=== PATIENT | female | born 1955 | race Caucasian/White ===

== ENCOUNTER → 2016-12-13 | Outpatient (CLI) | payer OTHER ==
--- NOTE | 2016-12-13 17:47 | CONS ---
DATE OF CONSULTATION: 12/13/2016 This patient is a 61-year-old lady who has been evaluated in the sleep center for possible obstructive sleep apnea/hypopnea syndrome. HISTORY OF PRESENT ILLNESS/SLEEP-WAKE EVALUATION: Patient's usual sleep schedule is from 10:30 until 6:30 or 7 a.m. No problem with falling asleep. No TV in bedroom. According to her , she snores and she wakes up from sleep 3 times with nocturia. She wakes up with a dry mouth. In the morning she wakes up tired, feels sleepy during the day. [place] Sleepiness Scale is 10. She may take one nap during the day in the early afternoon. 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 PAST SURGICAL HISTORY: 1. Total hysterectomy. 2. Surgery for skin carcinoma of the forehead. 3. D&C MEDICATIONS: 1. Low-dose aspirin. 2. Vitamin E. 3. Polyvitamins. SOCIAL HISTORY: Negative for smoking. Alcohol consumption is occasional. REVIEW OF SYSTEMS: Tiredness and sleepiness during the day, snoring, multiple awakenings from sleep. No fevers. No double vision. No recent chest pain. No shortness of breath. No abdominal pain. No bleeding episodes. No blood in urine. No seizure episodes. FAMILY HISTORY: Hypertension, hyperlipidemia, snoring by her father, diabetes, thyroid problems. PHYSICAL EXAMINATION: GENERAL: A pleasant lady without distress. VITAL SIGNS: BP 132/71, HR 72, RR 16. Height 5 feet 5 inches. Weight 147. BMI 24.4. Neck 12-1/4 inches in circumference. Temperature 98.2. HEENT: PERRLA, EOMI. Evaluation of oropharynx showed tongue protrudes midline; retrognathia 2 to 3 mm. Extremely low position of soft palate. NECK: Supple. No JVD. Thyroid is not palpable. LUNGS: Clear to percussion and to auscultation. Good air exchange. No wheezing or rhonchi. HEART: S1, S2 regular. No murmurs, gallops or rubs. ABDOMEN: Soft and nontender. Bowel sounds are present. No organomegaly appreciated. EXTREMITIES: No clubbing or cyanosis. TIRE GROOVER: Awake, alert, and oriented x3. Cranial nerves 2 to 7 intact. There is no fasciculation or atrophy noted. No focal deficits observed. IMPRESSION: 1. Snoring, multiple awakenings from sleep, extremely low position of soft palate, sleepiness, retrognathia; obstructive sleep apnea/hypopnea syndrome. 2. History of uterine carcinoma, treated surgically. 3. History of skin carcinoma of the forehead, treated surgically. 4. Status post total hysterectomy. 5. Status post D&C. PLAN: 1. Polysomnography for evaluation of patient's breathing during sleep. 2. CPAP/BiPAP titration if sleep study confirms obstructive sleep apnea-hypopnea syndrome. 3. Preferable position during sleep on the side. 4. No driving if patient feels any sleepiness. Patient is aware of civil and criminal liability for unsafe driving. 5. I will see patient for follow-up visit to explain results of the testing and following plan. Thank you very much for referring this patient for consultation. Sincerely, Thad Tate MD, PhD, FAASM. Diplomat of [employer], Sleep Medicine Board by [employer] Pump Servicer Supervisor of [facility] [place]
== END | disposition home or self-care (01) ==
LOC: SLEEP 13:09
PROVIDERS: ATTEND Internal Medicine
DX: G47.33 Obstructive sleep apnea (adult) (pediatric) (principal); M26.19 Other specified anomalies of jaw-cranial base relationship; Z85.42 Personal history of malignant neoplasm of other parts of uterus; Z85.828 Personal history of other malignant neoplasm of skin; Z90.710 Acquired absence of both cervix and uterus; Z79.82 Long term (current) use of aspirin; Z79.899 Other long term (current) drug therapy
CPT/HCPCS: 99211

== ENCOUNTER → 2017-04-04 | Outpatient (CLI) | payer OTHER ==
--- NOTE | 2017-04-04 18:57 | PN ---
DATE OF SERVICE: 04/04/2017 61-year-old lady who has been followed in the sleep center for treatment of obstructive sleep apnea-hypopnea syndrome. Recently patient had a diagnostic sleep study and titration, and I discussed results of sleep test with her in detail. Patient brought her CPAP unit for check-up. I checked her CPAP machine. Patient demonstrated a 30 out of 30 nights usage of the machine for more than 4 hours. Average 7.7 hours. Leak is only 1 liter per minute. CPAP pressure of 6 cm of water. REM is an automatic regimen, apnea-hypopnea index is only 1.4. Patient improved her sleep with the usage of CPAP and she feels better during the day. [place] Sleepiness Scale today is 7. MEDICATIONS: 1. Aspirin. 2. Vitamin D. 3. Other vitamins. During physical exam, the patient in no distress. VITAL SIGNS: BP 121/70, HR 64, RR 16. Weight 149, temperature 98.0. Oxygen saturation at room air 95%, moderately low position of soft palate. Other physical examination normal. HEENT: PERRLA, EOMI, Evaluation of the oropharynx showed tongue protrudes midline. NECK: Supple. No JVD, Thyroid is not palpable. LUNGS: Clear to percussion and to auscultation. Good air exchange. No wheezing or rhonchi. HEART: S1, S2 regular. No murmurs, gallops, or rubs. ABDOMEN: Soft and nontender. Bowel sounds are present. No organomegaly appreciated. ROAD DRIVER: Awake, alert, and oriented x3. Cranial nerves 2 to 7 intact. There is no fasciculation or atrophy noted. No focal deficits observed. IMPRESSION: 1. Obstructive sleep apnea-hypopnea syndrome. Apnea-hypopnea index 9.8 with oxygen desaturation to 85% on control with CPAP at the pressure of 6 cm of water. Patient demonstrated 100% compliance with treatment benefiting from treatment. 2. History of skin carcinoma. 3. History of uterine carcinoma. 4. Status post D&C. PLAN: 1. Patient will continue to use her CPAP equipment every night. 2. Sleep hygiene with regular time in bed for at least 8 hours. 3. No driving if feeling any sleepiness. 4. Replacement of wall necessary CPAP supplies on a regular basis. 5. Follow-up visit in one year after sleep study was done in about 10 months. Thank you very much for allowing me to participate in the management of your patient. Sincerely, Thad Tate MD, PhD, FAASM Diplomat of [employer], Sleep Medicine Board by [employer] Coroner Transport Technician of [facility] [place]
== END | disposition home or self-care (01) ==
LOC: SLEEP 13:59
PROVIDERS: ATTEND Internal Medicine
DX: G47.33 Obstructive sleep apnea (adult) (pediatric) (principal); Z79.899 Other long term (current) drug therapy

== ENCOUNTER → 2017-08-19 | Outpatient (CLI) | payer OTHER ==
--- NOTE | 2017-08-20 09:23 | MM ---
Reason for exam: screening (asymptomatic). Last mammogram was performed 1 year ago. History: Patient is postmenopausal and has history of other cancer at age 55. Taking estrogen for 8 years. Physical Findings: A clinical breast exam by your physician is recommended on an annual basis and results should be correlated with mammographic findings. MG 3D Screening Mammo W/Cad Bilateral CC and MLO view(s) were taken. Prior study comparison: August 14, 2016, bilateral MG screening mammo w CAD. July 27, 2015, bilateral MG screening mammo w CAD. The breast tissue is heterogeneously dense. This may lower the sensitivity of mammography. Finding: There are typically benign round calcifications in the left breast. There is no discrete abnormality. ASSESSMENT: Benign, BI-RAD 2 RECOMMENDATION: Routine screening mammogram of both breasts in 1 year.
== END | disposition home or self-care (01) ==
LOC: RADMAMWWP 10:14
PROVIDERS: ATTEND Family Medicine
DX: Z12.31 Encounter for screening mammogram for malignant neoplasm of breast (principal)
CPT/HCPCS: 77063; G0202

== ENCOUNTER → 2018-01-27 | Outpatient (CLI) | payer OTHER | END | disposition home or self-care (01) | LOC: LABWHC1 10:42 | PROVIDERS: ATTEND Otolaryngology | DX: J30.89 Other allergic rhinitis (principal) | CPT/HCPCS: 36415 ==

== ENCOUNTER → 2018-02-17 | Outpatient (CLI) | payer OTHER | END | disposition home or self-care (01) | LOC: LABWHC1 14:09 | PROVIDERS: ATTEND Nurse Practitioner Family | DX: Z01.812 Encounter for preprocedural laboratory examination (principal); G47.33 Obstructive sleep apnea (adult) (pediatric) | CPT/HCPCS: 36415; 86140 ==

== ENCOUNTER → 2018-03-13 | Outpatient (CLI) | payer OTHER | END | disposition home or self-care (01) | LOC: LABPAT 13:55 | PROVIDERS: ATTEND Otolaryngology | DX: Z01.812 Encounter for preprocedural laboratory examination (principal); Z01.818 Encounter for other preprocedural examination; R53.83 Other fatigue | CPT/HCPCS: 93005 ==

== ENCOUNTER 2018-03-20 13:29 | Day surgery (SDC) | payer OTHER ==
[2018-03-17 14:27] VITALS: BMI 22.9
[~2018-03-20 13:29] MED LIST: DEXAMETHASONE SOD PHOSPHATE 10 MG/ML 1 ML VIAL IV ONE; LACTATED RINGERS 1,000 ML IV SCH; MELOXICAM 7.5 MG TAB PO ONE; MORPHINE SULFATE 4 MG/ML SYRINGE IV PRN; ONDANSETRON ODT 4 MG TAB PO ONE; Pre Op ABX Message 1 EACH MISC MISCELLANE ONE
[2018-03-20] MEDS ORDERED: LIDOCAINE 1% 20 ML VIAL (10MG/ML) FOR IV START INTRADERMA ONE (14:22)
[2018-03-20] MEDS: OXYMETAZOLINE 0.05% NASL SPRAY 1 SPRAY BOTTLE NASAL ONE ×5 (14:25→14:54)
[2018-03-20] MEDS ORDERED: ONDANSETRON 4 MG/2 ML VIAL IVP ONE ×2 (14:29→18:43)
[2018-03-20] MEDS ORDERED: DEXAMETHASONE SOD PHOS (MDV) 100 MG/10 ML VIAL ONE (15:12)
[2018-03-20] MEDS ORDERED: fentaNYL (PF) 50 MCG/ML 2 ML AMP ONE (15:12)
[2018-03-20] MEDS ORDERED: MIDAZOLAM 2 MG/2 ML VIAL ONE (15:12)
[2018-03-20] MEDS ORDERED: LIDOCAINE 1% INJ 10MG/ML (20 ML MDV) ONE (15:12)
[2018-03-20] MEDS ORDERED: ePHEDrine SULFATE/0.9% NACL/PF 50 MG/5 ML SYRINGE IV ONE (15:12)
[2018-03-20] MEDS ORDERED: PROPOFOL 10 MG/ML 20 ML VIAL IV ONE (15:12)
[2018-03-20] MEDS ORDERED: LIDOCAINE 1%-EPI 1:100,000 20 ML VIAL SUBMUCOSAL ONE ×4 (15:29→16:26)
[2018-03-20] MEDS ORDERED: BUPIVACAINE (PF) 0.25% 30 ML VIAL SQ ONE ×2 (16:25)
--- NOTE | 2018-03-20 16:54 | P.OP ---
Date of Procedure: 03/20/18 Preoperative Diagnosis: Obstructive sleep apnea syndrome Deviated nasal septum Postoperative Diagnosis: Same Procedure(s) Performed: Uvulopalatopharyngoplasty Septoplasty Anesthesia: IRENAA Surgeon: Brendan Leblanc Estimated Blood Loss (ml): 0 Pathology: other (septum/uvula) Condition: stable Disposition: PACU Indications for Procedure: This patient has sleep apnea and is on CPAP but is intolerant to CPAP. She was found have a deviated nasal septum along with a very redundant soft palate. The septum was deviated severely to the left with a septal spur noted very redundant soft palate was seen. Operative Findings: As above Description of Procedure: This patient was taken to the operative room and placed in the supine position. A general inhalation anesthetic was administered to the patient and subsequently intubated with a cuffed endotracheal tube by the department of anesthesia with a functioning IV line in place. The patient was monitored through the entire case by the department of anesthesia. Prep medication was administered Attention was paid to the nose where the septum and inferior turbinates were injected with lidocaine 1% with epinephrine 1 100,000. Approximately 10 minutes were allowed wait for full vasoconstrictive effects to take place. At this time, a caudal incision was made over the caudal portion of the left septum. This was made down to the mucoperichondrium were a mucoperichondrial flap was developed to the extent of visualization on the left. A crossover incision was made with for the mucoperichondrial flap development to the extent of visualization on the contralateral side. With use of several crosshatching incisions and removal of redundant strips of septal cartilage the septum was straightened and placed back in position. The septum was perfectly straight and the incision was closed with a 4 rapid Vicryl. A quilting stitch was used to reapproximate the septal flaps. The septum was sutured fixated to the vomer area and groove. In the incision was closed with 40 rapid Vicryl. Bauer splints were placed Attention was then paid to the mouth where a McIvor mouthgag was inserted into the patient's mouth with care to avoid any trauma to the lips, teeth, gums, or tongue. The mouth was opened and tongue was depressed and the soft palate was measured. The uvula was extremely long and the soft palate was redundant. We removed the anterior face of the uvula and we remove the anterior inferior margin of the mucosa the soft palate. We sutured the posterior margin of the soft palate to the anterior portion of the soft palate with care to avoid any excessive soft palate resection. We measured the soft palate to prevent any velopharyngeal insufficiency. The soft palate looked excellent and after the uvulectomy and the lateral pharyngeal mucosa was removed in the usual fashion, the incision was closed with a 4 rapid Vicryl. Excellent approximation was obtained. The patient was taken to postanesthesia recovery in excellent condition The patient will follow up with me in one week as an outpatient.
[2018-03-20 16:55] VITALS: TEMP 97.3
[2018-03-20] MEDS ORDERED: LABETALOL SYRINGE 5 MG/ML IV ONE ×3 (18:49→19:32)
[2018-03-20 18:58] VITALS: RESP 18
[2018-03-20] MEDS ORDERED: LIDOCAINE VISCOUS 2% 15 ML CUP MUCOUS MEM ONE (19:33)
[2018-03-20] MEDS ORDERED: ENALAPRILAT 1.25 MG/ML 1 ML VIAL IV ONE (19:33)
[2018-03-20 20:17] VITALS: BP 157/86; PULSE 80
[2018-03-21] MEDS ORDERED: DEXAMETHASONE SOD PHOSPHATE 4 MG/ML 1 ML VIAL IV ONE (05:00)
[2018-03-21] MEDS ORDERED: FAMOTIDINE 20 MG/2 ML VIAL IV ONE (05:00)
[2018-03-21] MEDS ORDERED: ceFAZolin 1,000 MG in DEXTROSE/WATER 1 50ML.BAG IV ONE (05:00)
[2018-03-21] MEDS ORDERED: ONDANSETRON 4 MG/2 ML VIAL IVP ONE (05:00)
== END 2018-03-20 20:31 | disposition home or self-care (01) ==
LOC: OR 13:29
PROVIDERS: ATTEND Otolaryngology
DX: J34.2 Deviated nasal septum (principal); G47.33 Obstructive sleep apnea (adult) (pediatric); H69.92 Unspecified Eustachian tube disorder, left ear; H93.13 Tinnitus, bilateral; H93.8X3 Other specified disorders of ear, bilateral; Z99.89 Dependence on other enabling machines and devices; Z79.2 Long term (current) use of antibiotics; Z79.82 Long term (current) use of aspirin; Z79.1 Long term (current) use of non-steroidal anti-inflammatories (NSAID); Z79.51 Long term (current) use of inhaled steroids; Z79.899 Other long term (current) drug therapy; Z91.012 Allergy to eggs; Z91.013 Allergy to seafood; Z91.018 Allergy to other foods; Z85.828 Personal history of other malignant neoplasm of skin; Z85.42 Personal history of malignant neoplasm of other parts of uterus
CPT/HCPCS: 42145; 30520; J2250; J2270; J2405; J2001; J3010; J0690; J1100; J2704; 88300; 88302

== ENCOUNTER → 2019-11-26 | Outpatient (CLI) | payer MEDICARE, OTHER ==
--- NOTE | 2019-11-26 11:52 | BD ---
EXAMINATION TYPE: Axial Bone Density DATE OF EXAM: 11/26/2019 COMPARISON: 07.29.2015 CLINICAL HISTORY: 64 YR OLD FEMALE....ICD-10 CODE: M89.9 DISORDER OF BONE Height: 65 Weight: 134 FRAX RISK QUESTIONS: Family History (Parent hip fracture): YES RISK FACTORS HISTORY OF: Family History of Osteoporosis: YES, HER MOTHER WITH HIP FXs Active: YES Diet low in dairy products/other sources of calcium: YES, A BIT Postmenopausal woman: YES AT AGE 47 Hyperparathyroidism: NO Adrenal Insufficiency: NO MEDICATIONS: Additional Medications: RADIATION FOR UTERINE CA, CHOLESTEROL MED, VIT D, Additional History: HX OF UTERINE CA, CHOLESTEROL EXAM MEASUREMENTS: Bone mineral densitometry was performed using the [employer] System. Bone mineral density as measured about the Lumbar spine is: ----- L1-L4(G/cm2): 1.262 T Score Values are as follows: ----- L1: -1.3 ----- L2: -0.5 ----- L3: 1.1 ----- L4: 2.8 ----- L1-L4: 0.7 Bone mineral density has: Increased 3.5% since study of: 07.29.2015 Bone mineral density about the R hip (g/cm2): 0.798 Bone mineral density about the L hip (g/cm2): 0.816 T Score values are as follows: -----R Neck: -1.8 -----L Neck: -1.8 -----R Total: -1.7 -----L Total: -1.5 Bone mineral density has: Decreased -1.1% since study of: 07.29.2015 FRAX%s: THERE IS A 17.4% CHANCE FOR A MAJOR OSTEOPOROTIC FX AND A 1.8% FOR HIP....PROBABILITY FOR F X IN 10 YRS TIME IMPRESSION: Osteopenia (T Score between -2.5 and -1). There is slightly increased risk of fracture and the patient may be considered for treatment. Re-Screen 2-5 years. NOTE: T-SCORE=SD OF THE YOUNG ADULT MEAN.
== END | disposition home or self-care (01) ==
LOC: RADBDWWP 09:36
PROVIDERS: ATTEND Family Medicine
DX: M85.88 Other specified disorders of bone density and structure, other site (principal)
CPT/HCPCS: 77080

== ENCOUNTER → 2019-11-26 | Outpatient (CLI) | payer MEDICARE, OTHER ==
--- NOTE | 2019-11-27 11:10 | MM ---
Reason for exam: screening (asymptomatic). Last mammogram was performed 1 year and 2 months ago. History: Patient is postmenopausal and has history of other cancer at age 55. Took estrogen for 8 years. Physical Findings: A clinical breast exam by your physician is recommended on an annual basis and results should be correlated with mammographic findings. MG 3D Screening Mammo W/Cad Bilateral CC and MLO view(s) were taken. Prior study comparison: October 07, 2018, bilateral MG 3d screening mammo w/cad. August 19, 2017, bilateral MG 3d screening mammo w/cad. The breast tissue is heterogeneously dense. This may lower the sensitivity of mammography. No suspicious abnormality. No significant changes when compared with prior studies. ASSESSMENT: Negative, BI-RAD 1 RECOMMENDATION: Routine screening mammogram of both breasts in 1 year.
== END ==
LOC: RADMAMWWP 09:39
PROVIDERS: ATTEND Obstetrics & Gynecology
DX: Z12.31 Encounter for screening mammogram for malignant neoplasm of breast (principal)
CPT/HCPCS: 77063; 77067

== ENCOUNTER → 2020-01-07 | Outpatient (CLI) | payer MEDICARE, OTHER | END | disposition home or self-care (01) | LOC: LABWHC1 11:42 | PROVIDERS: ATTEND Ophthalmology | DX: M19.90 Unspecified osteoarthritis, unspecified site (principal) | CPT/HCPCS: 36415; 85652; 86140 ==

== ENCOUNTER → 2020-08-17 | Outpatient (CLI) | payer MEDICARE, OTHER ==
--- NOTE | 2020-08-17 11:28 | US ---
EXAMINATION TYPE: US abdomen complete DATE OF EXAM: 08/17/2020 COMPARISON: NONE CLINICAL HISTORY: R10.9 ABD PAIN. abd pain and nausea ongoing for a year EXAM MEASUREMENTS: Liver Length: 12.3 cm Gallbladder Wall: 0.2 cm CBD: 0.4 cm Spleen: 9.7 cm Right Kidney: 9.2 x 3.9 x 3.9 cm Left Kidney: 8.5 x 3.0 x 4.5 cm Pancreas: wnl Liver: wnl Gallbladder: neck fold, wnl Evidence for sonographic Choudhury's sign: no CBD: wnl Spleen: wnl Right Kidney: wnl Left Kidney: wnl Upper IVC: wnl Abd Aorta: wnl The liver is homogenous. The intrahepatic portion of the IVC and proximal abdominal aorta are within normal limits. There is no evidence of cholelithiasis. Common bile duct is unremarkable. The visu alized portions of the pancreas are homogenous. The spleen is unremarkable. Kidneys are symmetric a nd free of hydronephrosis. No renal lesions are seen. IMPRESSION: No distinct abnormality is appreciated.
== END | disposition home or self-care (01) ==
LOC: RADUSWWP 10:43
PROVIDERS: ATTEND Family Medicine
DX: R10.9 Unspecified abdominal pain (principal)
CPT/HCPCS: 76700

== ENCOUNTER 2020-08-28 10:25 | Emergency (ER) | payer MEDICARE, OTHER ==
[2020-08-28 10:37] VITALS: RESP 18
[2020-08-28] MEDS ORDERED: ONDANSETRON 4 MG/2 ML VIAL IVP STA (10:52)
[2020-08-28] MEDS ORDERED: SODIUM CHLORIDE 0.9% 1,000 ML IV STA (10:52)
[2020-08-28] MEDS ORDERED: KETOROLAC 15 MG/ML 1 ML VIAL IVP STA (10:52)
--- NOTE | 2020-08-28 11:06 | ED ---
Abdominal Pain HPI - General Chief Complaint: Abdominal Pain Stated Complaint: Chest pain, Side pain Time Seen by Provider: 08/28/20 10:42 Source: patient, RN notes reviewed Mode of arrival: ambulatory Limitations: no limitations - History of Present Illness Initial Comments: This a 65-year-old female presents emergency Department chief complaint of right flank pain. Patient states she hasn't bothered symptoms earlier this year which resolved. But states that she's been having increasing abdominal pain and which she has not seen her primary care physician for an she had an ultrasound with no acute findings. She is scheduled now for appointment with Dr. Bryant but not until November. Patient states that she cannot tolerate the pain. It did worsen last night into today. She states that she developed some nausea, heartburn eyes any chest pain she states it's my her right kidney back. She has no shortness of breath no fevers or chills. Denies any dysuria hematuria no history kidney stones. Patient states she's been constipated though she still had a good bowel movements. Patient's had a prior hysterectomy, prior colonoscopies with no acute findings. - Related Data Home Medications Medication Instructions Recorded Confirmed Aspirin [Adult Low Dose Aspirin EC] 81 mg PO DAILY 08/21/16 08/28/20 Cholecalciferol [Vitamin D3] 1,000 unit PO DAILY 08/21/16 08/28/20 Multivit-Min/FA/Calcium/Vit K1 1 tab PO DAILY 08/21/16 08/28/20 [One-A-Day Women's 50+ Tablet] Atorvastatin Calcium [Lipitor] 5 mg PO DAILY 08/28/20 08/28/20 Curamin Pain Relief 1 tab PO TID PRN 08/28/20 08/28/20 Previous Rx's Medication Instructions Recorded Docusate [Colace] 100 mg PO BID #14 capsule 08/28/20 Naproxen 500 mg PO BID #20 tablet 08/28/20 Allergies Allergy/AdvReac Type Severity Reaction Status Date / Time egg yolk Allergy Unknown Verified 08/28/20 11:36 gluten Allergy Unknown Verified 08/28/20 11:36 shellfish derived [Shrimp] Allergy Unknown Verified 08/28/20 11:36 wheat Allergy Unknown Verified 08/28/20 11:36 Review of Systems ROS Statement: Those systems with pertinent positive or pertinent negative responses have been documented in the HPI. ROS Other: All systems not noted in ROS Statement are negative. 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 History of Any Multi-Drug Resistant Organisms: None Reported Past Surgical History: Hysterectomy Additional Past Surgical History / Comment(s): FOSTER NEUROMA RIGHT FOOT,D&C Past Anesthesia/Blood Transfusion Reactions: Motion Sickness Past Psychological History: No Psychological Hx Reported Smoking Status: Never smoker Past Alcohol Use History: Occasional Past Drug Use History: None Reported - Past Family History Mother Family Medical History: No Reported History General Exam Limitations: no limitations General appearance: alert, in no apparent distress Head exam: Present: atraumatic, normocephalic, normal inspection Eye exam: Present: normal appearance, PERRL, EOMI. Absent: scleral icterus, conjunctival injection, periorbital swelling ENT exam: Present: normal exam, normal oropharynx, mucous membranes moist Neck exam: Present: normal inspection, full ROM. Absent: tenderness, meningismus, lymphadenopathy Respiratory exam: Present: normal lung sounds bilaterally. Absent: respiratory distress, wheezes, rales, rhonchi, stridor Cardiovascular Exam: Present: regular rate, normal rhythm, normal heart sounds. Absent: systolic murmur, diastolic murmur, rubs, gallop, clicks GI/Abdominal exam: Present: soft, tenderness (Mild right upper quadrant), normal bowel sounds. Absent: distended, guarding, rebound, rigid Back exam: Present: CVA tenderness (R). Absent: CVA tenderness (L) Neurological exam: Present: alert, oriented X3, CN II-XII intact Skin exam: Present: warm, dry, intact, normal color. Absent: rash Course Vital Signs 08/28/20 08/28/20 10:33 12:45 Temperature 98.3 F Pulse Rate 78 69 Respiratory 18 18 Rate Blood Pressure 145/78 161/79 O2 Sat by Pulse 100 99 Oximetry Medical Decision Making - Medical Decision Making 65-year-old presented for right flank pain. This has been ongoing. Patient did have further imaging after she had prior ultrasound which didn't reveal any acute abnormality CT does not show any major abnormality's account for pain. Patient's labs unremarkable. Patient will be discharged in stable condition advised follow-up with her PCP tomorrow return for any worsening or changing symptoms. - Lab Data Result diagrams: 08/28/20 11:02 08/28/20 11:02 Lab Results 08/28/20 08/28/20 08/28/20 Range/Units 11:02 11:02 11:02 WBC 3.9 (3.8-10.6) k/uL RBC 4.98 (3.80-5.40) m/uL Hgb 14.5 (11.4-16.0) gm/dL Hct 44.4 (34.0-46.0) % MCV 89.1 (80.0-100.0) fL MCH 29.2 (25.0-35.0) pg MCHC 32.7 (31.0-37.0) g/dL RDW 12.2 (11.5-15.5) % Plt Count 273 (150-450) k/uL Neutrophils % 56 % Lymphocytes % 25 % Monocytes % 8 % Eosinophils % 7 % Basophils % 1 % Neutrophils # 2.2 (1.3-7.7) k/uL Lymphocytes # 1.0 (1.0-4.8) k/uL Monocytes # 0.3 (0-1.0) k/uL Eosinophils # 0.3 (0-0.7) k/uL Basophils # 0.0 (0-0.2) k/uL Sodium 138 (137-145) mmol/L Potassium 4.5 (3.5-5.1) mmol/L Chloride 106 (98-107) mmol/L Carbon Dioxide 25 (22-30) mmol/L Anion Gap 7 mmol/L BUN 21 H (7-17) mg/dL Creatinine 0.80 (0.52-1.04) mg/dL Est GFR (CKD-EPI)AfAm 88 (>60 ml/min/1.73 sqM) Est GFR (CKD-EPI)NonAf 77 (>60 ml/min/1.73 sqM) Glucose 102 H (74-99) mg/dL Plasma Lactic Acid Petey (0.7-2.0) mmol/L Calcium 10.0 (8.4-10.2) mg/dL Total Bilirubin 0.6 (0.2-1.3) mg/dL AST 37 H (14-36) U/L ALT 32 (4-34) U/L Alkaline Phosphatase 80 (38-126) U/L Troponin I (0.000-0.034) ng/mL Total Protein 7.2 (6.3-8.2) g/dL Albumin 4.7 (3.5-5.0) g/dL Amylase 62 (30-110) U/L Lipase 53 (23-300) U/L Urine Color Yellow Urine Appearance Clear (Clear) Urine pH 7.0 (5.0-8.0) Ur Specific [place] 1.018 (1.001-1.035) Urine Protein Negative (Negative) Urine Glucose (UA) Negative (Negative) Urine Ketones Trace H (Negative) Urine Blood Negative (Negative) Urine Nitrite Negative (Negative) Urine Bilirubin Negative (Negative) Urine Urobilinogen <2.0 (<2.0) mg/dL Ur Leukocyte Esterase Small H (Negative) Urine RBC 1 (0-5) /hpf Urine WBC 1 (0-5) /hpf Ur Squamous Epith Cells <1 (0-4) /hpf Urine Mucus Rare H (None) /hpf 08/28/20 08/28/20 Range/Units 11:02 11:02 WBC (3.8-10.6) k/uL RBC (3.80-5.40) m/uL Hgb (11.4-16.0) gm/dL Hct (34.0-46.0) % MCV (80.0-100.0) fL MCH (25.0-35.0) pg MCHC (31.0-37.0) g/dL RDW (11.5-15.5) % Plt Count (150-450) k/uL Neutrophils % % Lymphocytes % % Monocytes % % Eosinophils % % Basophils % % Neutrophils # (1.3-7.7) k/uL Lymphocytes # (1.0-4.8) k/uL Monocytes # (0-1.0) k/uL Eosinophils # (0-0.7) k/uL Basophils # (0-0.2) k/uL Sodium (137-145) mmol/L Potassium (3.5-5.1) mmol/L Chloride (98-107) mmol/L Carbon Dioxide (22-30) mmol/L Anion Gap mmol/L BUN (7-17) mg/dL Creatinine (0.52-1.04) mg/dL Est GFR (CKD-EPI)AfAm (>60 ml/min/1.73 sqM) Est GFR (CKD-EPI)NonAf (>60 ml/min/1.73 sqM) Glucose (74-99) mg/dL Plasma Lactic Acid Petey 0.9 (0.7-2.0) mmol/L Calcium (8.4-10.2) mg/dL Total Bilirubin (0.2-1.3) mg/dL AST (14-36) U/L ALT (4-34) U/L Alkaline Phosphatase (38-126) U/L Troponin I <0.012 (0.000-0.034) ng/mL Total Protein (6.3-8.2) g/dL Albumin (3.5-5.0) g/dL Amylase (30-110) U/L Lipase (23-300) U/L Urine Color Urine Appearance (Clear) Urine pH (5.0-8.0) Ur Specific [place] (1.001-1.035) Urine Protein (Negative) Urine Glucose (UA) (Negative) Urine Ketones (Negative) Urine Blood (Negative) Urine Nitrite (Negative) Urine Bilirubin (Negative) Urine Urobilinogen (<2.0) mg/dL Ur Leukocyte Esterase (Negative) Urine RBC (0-5) /hpf Urine WBC (0-5) /hpf Ur Squamous Epith Cells (0-4) /hpf Urine Mucus (None) /hpf Disposition Clinical Impression: Flank pain Disposition: HOME SELF-CARE Condition: Stable Instructions (If sedation given, give patient instructions): Abdominal Pain (ED) Additional Instructions: Please return to the Emergency Department if symptoms worsen or any other concerns. Prescriptions: Docusate [Colace] 100 mg PO BID #14 capsule Naproxen 500 mg PO BID #20 tablet Is patient prescribed a controlled substance at d/c from ED?: No Referrals: Karina Peña MD [Primary Care Provider] - 1-2 days Simon Pizarro MD [STAFF PHYSICIAN] - 1-2 days Time of Disposition: 13:20
[2020-08-28 11:15] LABS: Basophils % (A) 1 %; Eosinophils # (A) 0.3 k/uL (0-0.7); Eosinophils % (A) 7 %; HCT 44.4 % (34.0-46.0); HGB 14.5 gm/dL (11.4-16.0); Lymphocytes % (A) 25 %; MCH 29.2 pg (25.0-35.0); MCHC 32.7 g/dL (31.0-37.0); MCV 89.1 fL (80.0-100.0); Mean Platelet Volume 6.8; Monocytes # (A) 0.3 k/uL (0-1.0); Monocytes % (A) 8 %; Neutrophils # (A) 2.2 k/uL (1.3-7.7); Neutrophils % (A) 56 %; Platelet Count 273 k/uL (150-450); RBC 4.98 m/uL (3.80-5.40); RDW 12.2 % (11.5-15.5); WBC 3.9 k/uL (3.8-10.6)
[2020-08-28 11:28] LABS: Albumin 4.7 g/dL (3.5-5.0); Potassium 4.5 mmol/L (3.5-5.1); Total Bilirubin 0.6 mg/dL (0.2-1.3); Total Protein 7.2 g/dL (6.3-8.2)
[2020-08-28 11:38] LABS: Appearance,Urine Clear (Clear); Bilirubin,Urine Negative (Negative); Blood,Urine Negative (Negative); Color,Urine Yellow; Glucose,Urine (UA) Negative (Negative); Ketones,Urine Trace (Negative); Leukocyte Esterase,Urine Small (Negative); Mucus,Urine Rare /hpf; Nitrite,Urine Negative (Negative); Protein,Urine Negative (Negative); RBC,Urine 1 /hpf (0-5); Specific Gravity,Urine 1.018 (1.001-1.035); Squamous Epithelial Cell,Urine <1 /hpf (0-4); Urobilinogen,Urine <2.0 mg/dL (<2.0); WBC,Urine 1 /hpf (0-5)
--- NOTE | 2020-08-28 13:02 | CT ---
EXAMINATION TYPE: CT abdomen pelvis w con DATE OF EXAM: 08/28/2020 COMPARISON: NONE HISTORY: 65-year-old female Abdominal pain TECHNIQUE: Contiguous axial scanning of the abdomen and pelvis following administration of 100 ml Omn ipaque 300 IV contrast. Delayed images through the kidneys and coronal/sagittal reconstructions perf ormed. CT DLP: 663.6 mGycm Automated exposure control for dose reduction was used. FINDINGS: Heart normal size without pericardial effusion. Lung bases clear without pleural effusion. Tiny hiatal hernia. Focal fat along the anterior falciform ligament. Otherwise, no focal liver lesion or biliary ductal d ilatation. Portal venous system is patent. Gallbladder, adrenal glands, left kidney, spleen with anterior splenule, and pancreas appear within n ormal limits. Tiny subcentimeter hypodensity within the right kidney too small for accurate CT charac terization, likely tiny cyst. No dilated small bowel, free fluid, or free air. No mesenteric or retroperitoneal lymphadenopathy. Normal appendix. Scattered [id number] stool. Mild diverticular change along the distal sigmoid. No pericolonic inflammatory change. Bladder is urine distended. Uterus surgically absent. Neither ovary visualized. No abnormal fluid col lection in the pelvis or pelvic lymphadenopathy. Bones: Facet arthropathy lower lumbar spine. Moderate to advanced degenerative disc disease L5-S1. IMPRESSION: NO ACUTE INFLAMMATORY PROCESS IDENTIFIED IN THE ABDOMEN OR PELVIS TO EXPLAIN THE PATIENT'S SYMPTOMS. MILD DISTAL SIGMOID DIVERTICULOSIS. TINY HIATAL HERNIA.
[2020-08-28 13:46] VITALS: BP 150/72; PULSE 64; TEMP 98.1
== END 2020-08-28 13:45 | disposition home or self-care (01) ==
LOC: EC 10:25
DX: R10.9 Unspecified abdominal pain (principal); Z79.82 Long term (current) use of aspirin; Z79.899 Other long term (current) drug therapy; Z91.012 Allergy to eggs; Z91.018 Allergy to other foods; Z91.013 Allergy to seafood; Z90.710 Acquired absence of both cervix and uterus
CPT/HCPCS: 36415; 80053; 82150; 83605; 83690; 84484; 85025; 81001; 74177; 99284; 96374; 96375; 96361 ×3; J2405; J1885; Q9967; 93005

== ENCOUNTER → 2020-10-10 | Outpatient (CLI) | payer MEDICARE, OTHER ==
--- NOTE | 2020-10-10 10:02 | NM ---
EXAMINATION TYPE: NM hepatobiliary w CCK DATE OF EXAM: 10/10/2020 COMPARISON: CT 08/28/2020 HISTORY: 65-year-old female R10.84, abdominal pain TECHNIQUE: After the intravenous administration of 5 mCi Tc 99m Mebrofenin hepatobiliary scintigraphy is performed. Immediate images post injection. FINDINGS: There is satisfactory initial accumulation of tracer by the liver. The gallbladder is visualized wit hin 26 minutes. The small bowel activity is noted within 8 minutes. At one hour CCK was administere d, patient was injected with 1.2 mcg of Kinevac, and gallbladder ejection fraction is calculated at 9 3 %, elevated above the expected range. IMPRESSION: 1. No scintigraphic evidence for acute/chronic cholecystitis or biliary dyskinesia. 2. Gallbladder ejection fraction is elevated at 93%. Findings may be seen in the setting of gallbladd er hyperkinesis.
== END | disposition home or self-care (01) ==
LOC: RADNMMAIN 07:04
PROVIDERS: ATTEND Surgery
DX: R93.2 Abnormal findings on diagnostic imaging of liver and biliary tract (principal)
CPT/HCPCS: 78227; A9537; J2805

== ENCOUNTER → 2021-04-06 | Outpatient (CLI) | payer MEDICARE, OTHER ==
--- NOTE | 2021-04-07 09:02 | MM ---
Reason for exam: screening (asymptomatic). Last mammogram was performed 1 year and 4 months ago. History: Patient is postmenopausal and has history of other cancer at age 55. Took estrogen for 8 years. Physical Findings: A clinical breast exam by your physician is recommended on an annual basis and results should be correlated with mammographic findings. MG 3D Screening Mammo W/Cad Bilateral CC and MLO view(s) were taken. Prior study comparison: November 26, 2019, bilateral MG 3d screening mammo w/cad. October 07, 2018, bilateral MG 3d screening mammo w/cad. The breast tissue is heterogeneously dense. This may lower the sensitivity of mammography. There is no discrete abnormality. No significant changes when compared with prior studies. ASSESSMENT: Negative, BI-RAD 1 RECOMMENDATION: Routine screening mammogram of both breasts in 1 year.
== END | disposition home or self-care (01) ==
LOC: RADMAMWWP 13:34
PROVIDERS: ATTEND Obstetrics & Gynecology
DX: Z12.31 Encounter for screening mammogram for malignant neoplasm of breast (principal); Z78.0 Asymptomatic menopausal state
CPT/HCPCS: 77063; 77067

== ENCOUNTER → 2022-04-11 | Outpatient (CLI) | payer MEDICARE, OTHER ==
--- NOTE | 2022-04-11 15:56 | BD ---
EXAMINATION TYPE: Axial Bone Density DATE OF EXAM: 04/11/2022 COMPARISON: 11/26/2019 CLINICAL HISTORY: 66 years year old Female. ICD-10 CODE: Z78.0 Post Menopausal Height: 64.7 IN Weight: 145 LBS RISK FACTORS HISTORY OF: Family History of Osteoporosis: YES MOTHER Active: YES Postmenopausal woman: AGE 47; TOTAL HYST AGE 59 MEDICATIONS: Additional Medications: VIT D, VITAMIN, LOW DOSE ASPIRIN, ATORVASTATIN, Additional History: ENDOMETRIAL CANCER WITH RADIATION EXAM MEASUREMENTS: Bone mineral densitometry was performed using the [employer] System. Bone mineral density as measured about the Lumbar spine is: ----- L1-L4(G/cm2): 1.177 T Score Values are as follows: ----- L1: -1.4 ----- L2: -1.2 ----- L3: 0.6 ----- L4: 1.6 ----- L1-L4: 0.0 Bone mineral density has: Decreased -8.2% since study of: 11/26/2019 Bone mineral density about the R hip (g/cm2): 0.719 Bone mineral density about the L hip (g/cm2): 0.702 T Score values are as follows: -----R Neck: -2.3 -----L Neck: -2.4 -----R Total: -1.5 -----L Total: -1.9 Bone mineral density has: Decreased -2.2% since study of: 11/26/2019 FRAX%s: The graph provided illustrates a 14.0 chance for a major osteoporotic fx and a 3.3 chance for the hips probability for fx in 10 years time. IMPRESSION: Osteopenia (T Score between -2.5 and -1). There is slightly increased risk of fracture and the patient may be considered for treatment. Re-Screen 2-5 years. NOTE: T-SCORE=SD OF THE YOUNG ADULT MEAN.
--- NOTE | 2022-04-12 19:07 | MM ---
Reason for Exam: Screening (asymptomatic). Last mammogram was performed 1 year(s) and 1 month(s) ago. Patient History: Menarche at age 11. First Full-Term at age 28. Late child-bearing (after 28). Left ovary removed at age 60. Right ovary removed at age 60. Hysterectomy at age 60. Postmenopausal. Other cancer, age 55. Patient used Estrogen for 8 years. Risk Values: Kelsi 5 year model risk: 2.4%. NCI Lifetime model risk: 7.6%. Prior Study Comparison: 10/07/2018 Bilateral Screening Mammogram, [facility]. 11/26/2019 Bilateral Screening Mammogram, [facility]. 04/06/2021 Bilateral Screening Mammogram, [facility]. Tissue Density: The breast tissue is heterogeneously dense. This may lower the sensitivity of mammography. Findings: Analyzed By CAD. No significant change from prior exams. Overall Assessment: Negative, BI-RAD 1 Management: Screening Mammogram of both breasts in 1 year. Annual clinical breast exam by your physician. Also, monthly self breast exams are recommended. A negative mammogram should not preclude additional follow-up of suspicious palpable abnormalities. Electronically signed and approved by: Charu Garrison M.D. Radiologist
== END | disposition home or self-care (01) ==
LOC: RADBDWWP 14:13
PROVIDERS: ATTEND Obstetrics & Gynecology
DX: Z12.31 Encounter for screening mammogram for malignant neoplasm of breast (principal); Z78.0 Asymptomatic menopausal state; M85.89 Other specified disorders of bone density and structure, multiple sites; Z90.721 Acquired absence of ovaries, unilateral
CPT/HCPCS: 77063; 77067; 77080

== ENCOUNTER → 2023-04-17 | Outpatient (CLI) | payer MEDICARE, OTHER ==
--- NOTE | 2023-04-17 14:17 | MM ---
Reason for Exam: Screening (asymptomatic). Last screening mammogram was performed 12 month(s) ago. Patient History: Menarche at age 11. First Full-Term at age 28. Late child-bearing (after 28). Left ovary removed at age 60. Right ovary removed at age 60. Hysterectomy at age 60. Postmenopausal. Other cancer, age 55. Patient used Estrogen for 8 years. Risk Values: Kelsi 5 year model risk: 2.4%. NCI Lifetime model risk: 7.3%. Prior Study Comparison: 11/26/2019 Bilateral Screening Mammogram, [facility]. 04/06/2021 Bilateral Screening Mammogram, [facility]. 04/11/2022 Bilateral MG 3D screening mammo w/cad, [facility]. Tissue Density: The breast tissue is heterogeneously dense. This may lower the sensitivity of mammography. Findings: Analyzed By CAD. There is no suspicious group of microcalcifications or new suspicious mass in either breast. Overall Assessment: Negative, BI-RAD 1 Management: Screening Mammogram of both breasts in 1 year. A clinical breast exam by your physician is recommended on an annual basis and results should be correlated with mammographic findings. Electronically signed and approved by: Reinaldo Perez D.O.
== END | disposition home or self-care (01) ==
LOC: RADMAMWWP 09:52
PROVIDERS: ATTEND Family Medicine
DX: Z12.31 Encounter for screening mammogram for malignant neoplasm of breast (principal); Z78.0 Asymptomatic menopausal state
CPT/HCPCS: 77063; 77067

== ENCOUNTER → 2024-04-20 | Outpatient (CLI) | payer MEDICARE, OTHER ==
--- NOTE | 2024-04-20 11:15 | BD ---
EXAMINATION TYPE: Axial Bone Density DATE OF EXAM: 04/20/2024 CLINICAL HISTORY: 68 years old Female. ICD-10 CODE: M84.80 OTHER DISORDERS OF CONTIN Height: 64.5in Weight: 146lb FRAX RISK QUESTIONS: Secondary Osteoporosis: RISK FACTORS HISTORY OF: MEDICATIONS: EXAM MEASUREMENTS: Bone mineral densitometry was performed using the [employer] System. Bone mineral density as measured about the Lumbar spine is: ----- L1-L4(G/cm2): 1.260 T Score Values are as follows: ----- L1: -1.2 ----- L2: -0.5 ----- L3: 1.3 ----- L4: 2.5 ----- L1-L4: 0.7 Z Score Values are as follows: ----- L1: 0.5 ----- L2: 1.2 ----- L3: 3.0 ----- L4: 4.1 ----- L1-L4: 2.3 Bone mineral density has: Increased 7.1% since study of: 04-11-22 Bone mineral density about the R hip (g/cm2): 0.839 Bone mineral density about the L hip (g/cm2): 0.805 T Score values are as follows: -----R Neck: -1.9 -----L Neck: -2.0 -----R Total: -1.3 -----L Total: -1.6 Z Score values are as follows: -----R Neck: -0.2 -----L Neck: -0.3 -----R Total: 0.1 -----L Total: -0.1 Bone mineral density has: Increased 4.2% since study of: 04-11-22 FRAX%s: The graph provided illustrates a 12.4% chance for a major osteoporotic fx and a 2.6% chance f or the hips probability for fx in 10 years time. IMPRESSION: Osteopenia (T Score between -2.5 and -1). There is slightly increased risk of fracture and the patient may be considered for treatment. Re-Screen 2-5 years. NOTE: T-SCORE=SD OF THE YOUNG ADULT MEAN.
--- NOTE | 2024-04-21 09:09 | MM ---
Reason for Exam: Screening (asymptomatic). Last screening mammogram was performed 12 month(s) ago. Patient History: Menarche at age 11. First Full-Term at age 28. Late child-bearing (after 30). Left ovary removed at age 60. Right ovary removed at age 60. Hysterectomy at age 60. Postmenopausal. Other cancer, age 55. Patient used Estrogen for 8 years. Risk Values: Kelsi 5 year model risk: 2.4%. NCI Lifetime model risk: 6.9%. Prior Study Comparison: 04/06/2021 Bilateral Screening Mammogram, [facility]. 04/11/2022 Bilateral MG 3D screening mammo w/cad, [facility]. 04/17/2023 Bilateral MG 3D screening mammo w/cad, [facility]. Tissue Density: There are scattered areas of fibroglandular density. Findings: Analyzed By CAD. There is no suspicious group of microcalcifications or new suspicious mass in either breast. Overall Assessment: Negative, BI-RAD 1 Management: Screening Mammogram of both breasts in 1 year. . Patient should continue monthly self-breast exams. A clinical breast exam by your physician is recommended on an annual basis. This exam should not preclude additional follow-up of suspicious palpable abnormalities. Note on Kelsi scores and lifetime risk: 1. A Kelsi score greater than 3% is considered moderate risk. If this is the case, consider specialist referral to assess eligibility for a risk reducing agent. 2. If overall lifetime risk for the development of breast cancer is 20% or higher, the patient may qualify for future screening with alternating mammogram and breast MRI. Electronically signed and approved by: Ayo Newell M.D. Radiologis
== END | disposition home or self-care (01) ==
LOC: RADMAMWWP 08:22
PROVIDERS: ATTEND Family Medicine
DX: Z12.31 Encounter for screening mammogram for malignant neoplasm of breast (principal); M85.89 Other specified disorders of bone density and structure, multiple sites; M84.80 Other disorders of continuity of bone, unspecified site; Z78.0 Asymptomatic menopausal state
CPT/HCPCS: 77063; 77067; 77080

== ENCOUNTER → 2025-05-24 | Outpatient (CLI) | payer MEDICARE, OTHER ==
--- NOTE | 2025-05-24 09:40 | MM ---
Reason for Exam: Screening (asymptomatic). Last mammogram was performed 1 year(s) and 1 month(s) ago. Patient History: Menarche at age 11. First Full-Term at age 28. Late child-bearing (after 28). Left ovary removed at age 60. Right ovary removed at age 60. Hysterectomy at age 60. Postmenopausal. Other cancer, age 55. Patient used Estrogen for 8 years. Risk Values: Kelsi 5 year model risk: 2.4%. NCI Lifetime model risk: 6.6%. Prior Study Comparison: 04/11/2022 Bilateral MG 3D screening mammo w/cad, [facility]. 04/17/2023 Bilateral MG 3D screening mammo w/cad, [facility]. 04/20/2024 Bilateral MG 3D screening mammo w/cad, [facility]. Tissue Density: The breasts are heterogeneously dense, which may obscure small masses. Findings: Analyzed By CAD. There is no suspicious group of microcalcifications or new suspicious mass in either breast. Overall Assessment: Negative, BI-RAD 1 Management: Screening Mammogram of both breasts in 1 year. . Patient should continue monthly self-breast exams. A clinical breast exam by your physician is recommended on an annual basis. This exam should not preclude additional follow-up of suspicious palpable abnormalities. Note on Kelsi scores and lifetime risk: 1. A Kelsi score greater than 3% is considered moderate risk. If this is the case, consider specialist referral to assess eligibility for a risk reducing agent. 2. If overall lifetime risk for the development of breast cancer is 20% or higher, the patient may qualify for future screening with alternating mammogram and breast MRI. [facility], , 05/24/2025 9:37 AM. Electronically signed and approved by: Ayo Newell M.D. Radiologis
== END | disposition home or self-care (01) ==
LOC: RADMAMWWP 09:22
PROVIDERS: ATTEND Family Medicine
DX: Z12.31 Encounter for screening mammogram for malignant neoplasm of breast (principal); R92.333 Mammographic heterogeneous density, bilateral breasts; Z78.0 Asymptomatic menopausal state
CPT/HCPCS: 77063; 77067